=== PATIENT | male | born 1955 | race Caucasian/White ===

== ENCOUNTER 2016-09-30 12:34 | Day surgery (SDC) | payer BC, OTHER ==
[~2016-09-30] VITALS: Ht 165.1 cm; Wt 75.2 kg
[2016-09-30] MEDS ORDERED: ONDANSETRON 2MG/ML, 2ML ONE ×2 (13:27→16:49)
[2016-09-30] MEDS ORDERED: MORPHINE SULFATE 4 MG/ML, 1ML ONE ×2 (13:28→14:43)
[2016-09-30] MEDS ORDERED: MORPHINE SULFATE 4 MG/ML, 1ML IVPush PRN (13:30)
[2016-09-30] MEDS ORDERED: SODIUM CHLORIDE FLUSH 10ML SYR IVF ONE (13:30)
[2016-09-30] MEDS ORDERED: SODIUM CHLORIDE 0.9% 1,000ML IVBOLUS ONE (13:30)
[2016-09-30] MEDS ORDERED: ONDANSETRON 2MG/ML, 2ML IVPush ONE (13:30)
[2016-09-30 13:59] LABS: ASPARTATE AMINO TRANSFERASE 20 U/L (15-37); BLOOD UREA NITROGEN 9 mg/dL (7-18)
[2016-09-30] MEDS ORDERED: OMNIPAQUE 350 MG/ML, 100ML BOTTLE ONE (14:31)
[2016-09-30 14:47] VITALS: BP 129/85
[2016-09-30] MEDS ORDERED: AMPICILLIN/SULBACTAM 3 GM in SODIUM CHLORIDE 0.9% 100 ML IV ONE (15:30)
[2016-09-30] MEDS ORDERED: BUPIVACAINE/PF-EPI 0.5% 1:200K ONE (15:50)
[2016-09-30] MEDS ORDERED: MIDAZOLAM 1 MG/ML, 2ML ONE (16:32)
[2016-09-30] MEDS ORDERED: FENTANYL PF 250 MCG/5ML ONE (16:32)
[2016-09-30] MEDS ORDERED: GLYCOPYRROLATE 0.2MG/1ML ONE (16:49)
[2016-09-30] MEDS ORDERED: DEXAMETHASONE 4 MG/ML, 1ML ONE (16:49)
[2016-09-30] MEDS ORDERED: PROPOFOL 10 MG/ML, 20ML ONE (16:49)
[2016-09-30] MEDS ORDERED: NEOSTIGMINE 1 MG/ML, 10ML ONE (16:49)
[2016-09-30] MEDS ORDERED: ROCURONIUM 10 MG/ML ONE (16:49)
[2016-09-30] MEDS ORDERED: SUCCINYLCHOLINE 20 MG/ML, 10ML ONE (16:49)
[2016-09-30] MEDS ORDERED: METOPROLOL 1 MG/ML, 5ML IV PRN (17:30)
[2016-09-30] MEDS ORDERED: PROMETHAZINE 25 MG/ML, 1ML IV PRN (17:30)
[2016-09-30] MEDS ORDERED: ONDANSETRON 2MG/ML, 2ML IVPush PRN (17:30)
[2016-09-30] MEDS ORDERED: MIDAZOLAM 1 MG/ML, 2ML IV PRN (17:30)
[2016-09-30] MEDS ORDERED: hydrALAzine 20 MG/ML, 1ML IV PRN (17:30)
[2016-09-30] MEDS ORDERED: ACETAMINOPHEN 325 MG TABLET PO PRN (17:30)
[2016-09-30] MEDS ORDERED: ALBUTEROL SULFATE 2.5 MG/3 ML NPPB PRN (17:30)
[2016-09-30] MEDS ORDERED: OXYcodone 5 MG/5 ML ORAL.SOL UDC PO PRN (17:30)
[2016-09-30] MEDS ORDERED: LABETALOL 5MG/ML, 20ML IV PRN (17:30)
[2016-09-30] MEDS ORDERED: MEPERIDINE/PF 25MG/0.5ML IVPush PRN (17:30)
[2016-09-30] MEDS ORDERED: EPHEDRINE 50 MG/ML, 1ML IVPush PRN (17:30)
[2016-09-30] MEDS ORDERED: FENTANYL PF 100 MCG/2ML IV PRN (17:30)
[2016-09-30] MEDS ORDERED: HYDROmorphone 1 MG/ML, 1ML IV PRN (17:30)
[2016-09-30] MEDS ORDERED: OXYcodone 5 MG/5 ML ORAL.SOL UDC ONE (17:35)
[2016-09-30] MEDS ORDERED: KETOROLAC 30 MG/1 ML ONE (17:48)
[2016-09-30] MEDS ORDERED: KETOROLAC 30 MG/1 ML IVPush ONE (18:00)
[2016-09-30] MEDS ORDERED: OXYcodone/APAP 5/325MG TABLET PO PRN (18:30)
[2016-09-30] MEDS ORDERED: KETOROLAC 30 MG/1 ML IV ONE (18:30)
[2016-09-30] MEDS ORDERED: ONDANSETRON 2MG/ML, 2ML IV PRN (18:30)
[2016-09-30] MEDS ORDERED: morphine SULFATE 10 MG/ML, 1ML IV PRN (18:30)
[2016-09-30] MEDS ORDERED: OXYC-223 PO (20:52)
[2016-09-30] MEDS ORDERED: IBUP800T PO (20:52)
[2016-09-30] MEDS ORDERED: PNEUMOCOCCAL 23 VACCINE IM-VACC ONE (21:00)
== END 2016-09-30 21:50 | disposition home or self-care (01) ==
LOC: ED 13:11 → UNDOADMIN 15:07 → EDIP 15:07 → OR 15:07 → 4NOR 18:15 → EDIP 18:15 → OR 21:50 → UNDODISIN 21:50
PROVIDERS: ATTEND Surgery
DX: K35.80 Unspecified acute appendicitis (principal); J45.909 Unspecified asthma, uncomplicated; E78.00 Pure hypercholesterolemia, unspecified; N40.0 Benign prostatic hyperplasia without lower urinary tract symptoms; Z88.2 Allergy status to sulfonamides; Z91.013 Allergy to seafood
CPT/HCPCS: 36415; 44970; 74177; 80053; 81003; 83690; 85025; 88304; 96361; 96374; 99285; J0295; J0330; J1100; J1885; J2250; J2405; J2704; J2710; J3010; J7030; Q9967; J3490

== ENCOUNTER 2019-04-13 10:33 | Emergency (ER) | payer OTHER ==
[~2019-04-13] VITALS: Ht 165.1 cm; Wt 76.4 kg
[~2019-04-13 10:33] MED LIST: IBUP-1223 PO; OXYC-306 PO
[2019-04-13 10:50] VITALS: BP 120/72
--- NOTE | 2019-04-13 11:15 | NUR ---
pt ambulatory to ED accomp by family. FADUMO Collado in room for eval. Pt primarily [place]ombian speaking. pt c/o blood in urine starting sunday. hx BPH. has appt w/ urologist [facility] on Sunday. US of bladder shows no urinary retention. pt denies pain or difficulty in urinating, sts blood comes after he is done peeing. plan for labs and ua. call pereira in reach, family at bedside.
[2019-04-13 11:29] LABS: BASOPHILS # (AUTO) 0.07 x10^3/uL (0-0.1); BASOPHILS % (AUTO) 1 % (0-1); EOSINOPHILS # (AUTO) 0.26 x10^3/uL (0-0.4); EOSINOPHILS % (AUTO) 5 % (1-7); LYMPHOCYTES # (AUTO) 1.73 x10^3/uL (1-3.4); LYMPHOCYTES % (AUTO) 31 % (22-44); MD NO; MEAN CORPUSCULAR HEMOGLOBIN 30.2 pg (27.5-34.5); MEAN CORPUSCULAR HGB CONC 33.4 g/dL (33.2-36.2); MEAN CORPUSCULAR VOLUME 90.3 fL (81-97); MEAN PLATELET VOLUME 8.8 fL (7.4-10.4); MONOCYTES # (AUTO) 0.48 x10^3/uL (0.2-0.8); MONOCYTES % (AUTO) 9 % (2-9); NEUTROPHILS # (AUTO) 3.13 x10^3/uL (1.8-6.8); NEUTROPHILS % (AUTO) 55 % (42-75); PLATELET COUNT 198 x10^3/uL (130-400); RED BLOOD COUNT 5.36 x10^6/uL (4.38-5.82); RED CELL DISTRIBUTION WIDTH 12.8 % (9.4-14.8)
[2019-04-13 11:37] LABS: MICROSCOPIC AUTO
[2019-04-13] MEDS ORDERED: FINA5TAB4 PO (11:39)
[2019-04-13] MEDS ORDERED: MELO15TA24 PO (11:39)
[2019-04-13] MEDS ORDERED: TAMS-11 PO (11:39)
[2019-04-13] MEDS ORDERED: CHOL2000 PO (11:39)
[2019-04-13] MEDS ORDERED: LOVA20TA2 PO (11:39)
[2019-04-13 11:40] LABS: ALBUMIN 4.1 g/dL (3.4-5.0); ANION GAP 3 mmol/L (5-15); CALCIUM 8.6 mg/dL (8.5-10.1); CHLORIDE 109 mmol/L (98-107); CREATININE 0.84 mg/dL (0.7-1.3)
[2019-04-13 11:56] LABS: CULTURE INDICATED? NO
== END 2019-04-13 12:17 | disposition home or self-care (01) ==
LOC: ED 11:55
DX: N40.0 Benign prostatic hyperplasia without lower urinary tract symptoms (principal); R31.9 Hematuria, unspecified
CPT/HCPCS: 36415; 80048; 81001; 82040; 85025; 99284

== ENCOUNTER 2019-09-08 14:28 | Day surgery (SDC) | payer OTHER ==
[~2019-09-08] VITALS: Ht 167.6 cm; Wt 79.9 kg
[~2019-09-08 14:28] MED LIST changes: +CHOL2000 PO; +FINA5TAB4 PO; +LOVA20TA2 PO; +MELO15TA24 PO; +TAMS-11 PO; +stool softener PO
[2019-09-08 15:07] VITALS: BP 128/83
[2019-09-08] MEDS ORDERED: CHLORHEXIDINE 15 ML UDC ONE (15:39)
[2019-09-08] MEDS ORDERED: DEXAMETHASONE 4 MG/ML, 1ML ONE (16:39)
[2019-09-08] MEDS ORDERED: ONDANSETRON 2MG/ML, 2ML ONE (16:39)
[2019-09-08] MEDS ORDERED: PROPOFOL 10 MG/ML, 20ML ONE (16:39)
[2019-09-08] MEDS ORDERED: MEPERIDINE/PF 25MG/ML,1ML IVPush PRN (17:30)
[2019-09-08] MEDS ORDERED: LABETALOL 5MG/ML, 20ML IV PRN (17:30)
[2019-09-08] MEDS ORDERED: HYDROmorphone 2 MG/ML, 1ML IVPush PRN (17:30)
[2019-09-08] MEDS ORDERED: hydrALAzine 20 MG/ML, 1ML IV PRN (17:30)
[2019-09-08] MEDS ORDERED: PLEASE ENTER HEIGHT AND WEIGHT MC SCH (17:30)
[2019-09-08] MEDS ORDERED: PROMETHAZINE 25 MG/ML, 1ML IV PRN (17:30)
[2019-09-08] MEDS ORDERED: OXYcodone 5 MG/5 ML ORAL.SOL UDC PO PRN (17:30)
[2019-09-08] MEDS ORDERED: HALOPERIDOL 5 MG/ML IV PRN (17:30)
[2019-09-08] MEDS: FENTANYL PF 100 MCG/2ML IV PRN ×4 (17:47→18:35)
[2019-09-08] MEDS ORDERED: FENTANYL PF 100 MCG/2ML ONE (17:48)
[2019-09-08] MEDS ORDERED: OXYcodone 5 MG/5 ML ORAL.SOL UDC ONE (17:48)
[2019-09-08] MEDS ORDERED: hydrALAzine 20 MG/ML, 1ML ONE (17:53)
[2019-09-08] MEDS ORDERED: ACETAMINOPHEN 325 MG TABLET PO PRN (18:30)
[2019-09-08] MEDS ORDERED: HYDR-3237 PO (19:49)
== END 2019-09-08 21:25 | disposition home or self-care (01) ==
LOC: OR 14:28 → 4NE 19:30 → OR 21:25
PROVIDERS: ATTEND Urology
DX: D49.4 Neoplasm of unspecified behavior of bladder (principal); Z79.1 Long term (current) use of non-steroidal anti-inflammatories (NSAID); Z79.890 Hormone replacement therapy; Z79.891 Long term (current) use of opiate analgesic; Z79.899 Other long term (current) drug therapy; Z85.51 Personal history of malignant neoplasm of bladder; Z88.2 Allergy status to sulfonamides; Z91.013 Allergy to seafood
CPT/HCPCS: 52234; 88305; 93005; J0330; J0360; J0690; J1100; J2405; J2704; J3010; J7120; G0378; J2710

== ENCOUNTER → 2020-02-21 | Outpatient (CLI) | payer OTHER ==
[~2020-02-21] MED LIST changes: +HYDR-3237 PO
[2020-02-21 09:12] LABS: BASOPHILS # (AUTO) 0.05 x10^3/uL (0-0.1); BASOPHILS % (AUTO) 1 % (0-1); EOSINOPHILS # (AUTO) 0.26 x10^3/uL (0-0.4); EOSINOPHILS % (AUTO) 5 % (1-7); LYMPHOCYTES # (AUTO) 1.83 x10^3/uL (1-3.4); LYMPHOCYTES % (AUTO) 35 % (22-44); MD NO; MEAN CORPUSCULAR HEMOGLOBIN 29.9 pg (27.5-34.5); MEAN CORPUSCULAR HGB CONC 33.4 g/dL (33.2-36.2); MEAN PLATELET VOLUME 8.4 fL (7.4-10.4); MONOCYTES # (AUTO) 0.57 x10^3/uL (0.2-0.8); MONOCYTES % (AUTO) 11 % (2-9); NEUTROPHILS # (AUTO) 2.58 x10^3/uL (1.8-6.8); NEUTROPHILS % (AUTO) 49 % (42-75); PLATELET COUNT 199 x10^3/uL (130-400); RED BLOOD COUNT 5.28 x10^6/uL (4.38-5.82); RED CELL DISTRIBUTION WIDTH 13.2 % (9.4-14.8)
[2020-02-21 09:23] LABS: ALANINE AMINOTRANSFERASE 27 U/L (12-78); ALBUMIN 3.7 g/dL (3.4-5.0); ANION GAP 5 mmol/L (5-15); CALCIUM 8.6 mg/dL (8.5-10.1); CHLORIDE 111 mmol/L (98-107); CREATININE 0.78 mg/dL (0.7-1.3)
[2020-02-21 09:32] LABS: ALKALINE PHOSPHATASE 83 U/L (45-117); BILIRUBIN,TOTAL 0.7 mg/dL (0.2-1.0); CHOL/HDL RATIO 3.8; CHOLESTEROL, TOTAL 178 mg/dL (140-239); FREE T4 (FREE THYROXINE) 0.98 ng/dL (0.76-1.46); HDL CHOL % 26 % (26-37); HDL CHOLESTEROL (DIRECT) 47 mg/dL (40-60); LDL CHOLESTEROL,CALCULATED 109 mg/dL (54-169); LDL/HDL RATIO 2.3 (0.5-3.0); TOTAL PROTEIN 7.6 g/dL (6.4-8.2); TRIGLYCERIDES 108 mg/dL (50-200); VLDL CHOLESTEROL 22 mg/dL (0-25)
== END | disposition home or self-care (01) ==
LOC: LAB 08:42
PROVIDERS: ATTEND Family Medicine
DX: R73.03 Prediabetes (principal); R53.83 Other fatigue; E78.2 Mixed hyperlipidemia; N40.0 Benign prostatic hyperplasia without lower urinary tract symptoms
CPT/HCPCS: 36415; 80053; 80061; 83036; 84153; 84439; 84443; 84481; 85025